=== PATIENT | male | born 1995 | race Caucasian/White ===

== ENCOUNTER 2019-05-31 | Inpatient (IN) | payer BC ==
[~2019-05-31] VITALS: Ht 182.9 cm; Wt 69.9 kg
--- NOTE | 2019-05-31 00:20 | NUR ---
Pt A/O x 4 and ambulated in ER with stable gait for c/o insect bite x 2 days on right arm. (+) generalized redness on right arm, (+) itching Pt denies medical hx. Safe environment implemented. No acute distress
--- NOTE | 2019-05-31 00:24 | NUR ---
Called [facility] to page Erica Sevilla NP.
[2019-05-31] MEDS ORDERED: CLINDAMYCIN PHOSPHATE IV 600 MG in IV DEXTROSE 5% 100 ML IV ONE (00:30)
--- NOTE | 2019-05-31 00:31 | NUR ---
Dr. Powell on panel call with Erica Sevilla NP. Patient accepted for admission to [facility], diagnosis: cellulitis r arm.
[2019-05-31] MEDS ORDERED: CLINDAMYCIN PHOSPHATE 600 MG/4 ML VIAL ONE ×2 (00:34→04:24)
[2019-05-31 00:42] LABS: BASOPHILS % (AUTO) 0.3 % (0.0-2.0); EOSINOPHILS # (AUTO) 0.1 K/uL (0.0-0.7); EOSINOPHILS % (AUTO) 1.4 % (0.0-7.0); HEMATOCRIT 49.7 % (36.7-47.1); HEMOGLOBIN 16.8 g/dL (12.5-16.3); LYMPHOCYTES # (AUTO) 2.6 K/uL (20.0-40.0); LYMPHOCYTES % (AUTO) 24.4 % (20.5-51.5); MEAN CORPUSCULAR HEMOGLOBIN 29.2 uug (23.8-33.4); MEAN CORPUSCULAR HGB CONC 34 g/dL (32.5-36.3); MEAN CORPUSCULAR VOLUME 86.3 fL (73.0-96.2); MONOCYTES # (AUTO) 1.2 K/uL (2.0-10.0); MONOCYTES % (AUTO) 11.1 % (0.0-11.0); NEUTROPHILS # (AUTO) 6.7 K/uL (1.8-8.9); NEUTROPHILS % (AUTO) 62.8 % (38.5-71.5); PLATELET COUNT (AUTO) 184 K/uL (152-348); RED BLOOD CELL COUNT(AUTO) 5.76 MIL/uL (4.06-5.63); WHITE BLOOD COUNT (AUTO) 10.7 K/uL (3.6-10.2)
[2019-05-31 00:49] LABS: CREATININE 0.9 mg/dL (0.6-1.3); POTASSIUM 3.3 mmol/L (3.5-5.1)
--- NOTE | 2019-05-31 00:52 | NUR ---
Pt. admitted to [facility] , under care of Di CHIEF PORT DIRECTOR Belongs List completed Patient aware of plan of care. Cleocin 600 mg IVPB infusing and continued to floor. Receiving RN aware.
--- NOTE | 2019-05-31 01:00 | NUR ---
Admitting Notes Patient received into care from ED with friend at side. Patient is ambulatory with a steady gait and alert/oriented x3. Patient is here from [place] visiting friend but on Saturday felt a "bite" on his right forearm and thinks he pulled out a "stinger." Right arm reflects marked redness running from the right forearm into the axillary area. Patient has no previous medical history except for drug/etoh use and marijuana use. Patient has no complaints of pain or discomfort at this time. All safety and fall precaution measures are in place. Call light and personal items are within reach at all times. Will continue to monitor and asses.
[2019-05-31 01:22] VITALS: BP 137/76
[2019-05-31] MEDS ORDERED: HYDROCODONE/APAP 5-325MG TABLET PO PRN (02:15)
[2019-05-31] MEDS ORDERED: ACETAMINOPHEN 325 MG TABLET PO PRN (02:15)
[2019-05-31] MEDS ORDERED: ONDANSETRON 4 MG/2 ML VIAL IV PRN (02:15)
[2019-05-31] MEDS ORDERED: Z GUARD REMEDY PASTE 57 GM TUBE TOP PRN (02:15)
[2019-05-31] MEDS ORDERED: ZOLPIDEM 5 MG TABLET PO PRN (02:15)
[2019-05-31] MEDS ORDERED: MAGNESIUM HYDROXIDE 30 ML LIQUID UDC PO PRN (02:15)
[2019-05-31] MEDS ORDERED: POTASSIUM CHLORIDE 20 MEQ TAB.PRT.SR PO ONE (03:00)
[2019-05-31] MEDS: IV NS 1000 ML 1,000 ML IV PRN ×2 (03:23→15:57)
[2019-05-31 05:19] VITALS: BP 141/64
[2019-05-31] MEDS ORDERED: CLINDAMYCIN PHOSPHATE IV 600 MG in IV DEXTROSE 5% 100 ML IV SCH (06:00)
--- NOTE | 2019-05-31 06:33 | NUR ---
Patient has slept intermittently since admission to unit with no complaints of pain or discomfort. Prescribed IV antibiotic was provided as ordered and tolerated well, with no adverse side effects verbalized by patient or noted/observed by nurse. VS have been WNL and patient remains stable. Call light and personal items remain within reach at all times. All safety and fall precautions remain within reach.
[2019-05-31 06:49] LABS: BASOPHILS % (AUTO) 0.2 % (0.0-2.0); EOSINOPHILS % (AUTO) 0.5 % (0.0-7.0); HEMATOCRIT 48.1 % (36.7-47.1); HEMOGLOBIN 16.1 g/dL (12.5-16.3); LYMPHOCYTES # (AUTO) 1.6 K/uL (20.0-40.0); LYMPHOCYTES % (AUTO) 17.4 % (20.5-51.5); MEAN CORPUSCULAR HEMOGLOBIN 29.4 uug (23.8-33.4); MEAN CORPUSCULAR HGB CONC 33 g/dL (32.5-36.3); MEAN CORPUSCULAR VOLUME 87.9 fL (73.0-96.2); MONOCYTES # (AUTO) 0.9 K/uL (2.0-10.0); MONOCYTES % (AUTO) 9.6 % (0.0-11.0); NEUTROPHILS # (AUTO) 6.6 K/uL (1.8-8.9); NEUTROPHILS % (AUTO) 72.3 % (38.5-71.5); PLATELET COUNT (AUTO) 171 K/uL (152-348); RED BLOOD CELL COUNT(AUTO) 5.47 MIL/uL (4.06-5.63); WHITE BLOOD COUNT (AUTO) 9.1 K/uL (3.6-10.2)
[2019-05-31 06:56] LABS: CREATININE 0.9 mg/dL (0.6-1.3); MAGNESIUM 1.9 mg/dL (1.8-2.4); PHOSPHOROUS 3.9 mg/dL (2.5-4.9); POTASSIUM 3.9 mmol/L (3.5-5.1)
--- NOTE | 2019-05-31 07:30 | NUR ---
awake, on bed hob up, resting well. denies acute pain on right forearm.
[2019-05-31 11:11] VITALS: BP 128/77
--- NOTE | 2019-05-31 11:29 | NUR ---
CLINICAL PHARMACY NOTE:VANCOMYCIN DOSING Request for vancomycin dosing on a 27y/o male 182.88 CM 69.85 KG for right arm cellulitis Temp 98.2F BUN 12 Scr 0.9 WBC 9.1 Start vancomycin 1gm ivpb q8h estimate trough 17. Will order trough level prior to 4th dose. Will continue to monitor
[2019-05-31] MEDS: VANCOMYCIN IV 1,000 MG in IV DEXTROSE 5% 250 ML IV SCH ×2 (13:57→21:23)
--- NOTE | 2019-05-31 14:00 | NUR ---
started vanco as ordered, patient aware of use and effect.
[2019-05-31 15:22] VITALS: BP 106/49
--- NOTE | 2019-05-31 16:00 | NUR ---
tolerated vanco fair, needed to slow down due to efe syndrome, patient denies acute distress., subsided by itself.
--- NOTE | 2019-05-31 18:53 | NUR ---
redness remains within the [place], still tightness but little change. anxious to go home tomorrow. taking fluids well, appetite good
--- NOTE | 2019-05-31 19:30 | NUR ---
RECEIVED PT AWAKE, ALERT AND ORIENTEDX4. PT IN NO ACUTE DISTRESS. IV INTACT. SAFETY AND COMFORT PROVIDED. WILL CONTINUE TO MONITOR.
[2019-05-31 20:38] VITALS: BP 122/73
--- NOTE | 2019-05-31 20:45 | NUR ---
Hands off report to Teo Rn. Pt in no acute distress. Safety and comfort provided.
--- NOTE | 2019-05-31 21:00 | NUR ---
PATIENT ALERT ORIENTED NO SOB NO CHEST PAIN, R ARM CELLULITIS STILL HAS SMALL AREA REDNESS, NO FURTHER INCREASE IN REDNESS ON CELLULITIS AREA, NO COMPLAIN OF PAIN, CONT TO MONITOR.
[2019-06-01] MEDS: IV NS 1000 ML 1,000 ML IV PRN (03:00)
[2019-06-01 04:48] VITALS: BP 123/56
[2019-06-01] MEDS: VANCOMYCIN IV 1,000 MG in IV DEXTROSE 5% 250 ML IV SCH (05:12)
[2019-06-01 05:55] LABS: BASOPHILS % (AUTO) 0.4 % (0.0-2.0); EOSINOPHILS # (AUTO) 0.3 K/uL (0.0-0.7); EOSINOPHILS % (AUTO) 4.3 % (0.0-7.0); HEMATOCRIT 45.7 % (36.7-47.1); HEMOGLOBIN 15.1 g/dL (12.5-16.3); LYMPHOCYTES # (AUTO) 2.2 K/uL (20.0-40.0); LYMPHOCYTES % (AUTO) 33.2 % (20.5-51.5); MEAN CORPUSCULAR HEMOGLOBIN 29.2 uug (23.8-33.4); MEAN CORPUSCULAR HGB CONC 33 g/dL (32.5-36.3); MEAN CORPUSCULAR VOLUME 88.4 fL (73.0-96.2); MONOCYTES # (AUTO) 0.7 K/uL (2.0-10.0); MONOCYTES % (AUTO) 11.1 % (0.0-11.0); NEUTROPHILS # (AUTO) 3.4 K/uL (1.8-8.9); PLATELET COUNT (AUTO) 156 K/uL (152-348); RED BLOOD CELL COUNT(AUTO) 5.17 MIL/uL (4.06-5.63)
[2019-06-01 06:41] LABS: CREATININE 0.8 mg/dL (0.6-1.3); MAGNESIUM 1.9 mg/dL (1.8-2.4); PHOSPHOROUS 3.6 mg/dL (2.5-4.9); POTASSIUM 3.9 mmol/L (3.5-5.1)
[2019-06-01 06:50] LABS: WHITE BLOOD COUNT (AUTO) 6.7 K/uL (3.6-10.2)
--- NOTE | 2019-06-01 07:05 | NUR ---
PATIENT ALERT ORIENTED, NO SOB NO CHEST PAIN, NO COMPLAIN OF PAIN. ASSIST WITH TOILETING VOIDING WELL. R ARM REDNESS CONTAIN ON ON ONE SMALL SITE, NO FURTHER REDNESS NOTED, CONT TO MONITOR.
--- NOTE | 2019-06-01 07:30 | NUR ---
Patient calm and comfortable upon initial assessment ; patient with no signs of distress; patient will continue to be monitored.
[2019-06-01] MEDS ORDERED: DOXY150T3 PO (07:55)
--- NOTE | 2019-06-01 11:05 | NUR ---
Patient discharged home in stable condition ; patient with no signs of distress; patient with stable vital signs ;patient educated on discharge instructions and prescription refill ; patient verbalized understanding patient left via [employer] for flight back to [place].
== END 2019-06-01 12:00 | disposition home or self-care (01) | DRG 603 ==
LOC: ER 00:05 → MEDSURG3 00:53
PROVIDERS: ADMIT Nurse Practitioner Acute Care; ATTEND Registered Nurse
DX: L03.113 Cellulitis of right upper limb (principal); S50.861A Insect bite (nonvenomous) of right forearm, initial encounter; W57.XXXA Bitten or stung by nonvenomous insect and other nonvenomous arthropods, initial encounter; Y92.89 Other specified places as the place of occurrence of the external cause; F12.90 Cannabis use, unspecified, uncomplicated; E87.6 Hypokalemia
CPT/HCPCS: 36415; 83605; 83735; 84100; 85025; 87040; A4663; G0378; J3370; J3490; J7030; J7060